=== PATIENT | male | born 1950 | race Caucasian/White ===

== ENCOUNTER 2025-04-28 14:25 | Emergency (ER) | payer MEDICARE, SELFPAY ==
[2025-04-28] VITALS (12 sets, daily range): BP systolic 134–154; BP diastolic 79–96; PULSE 79–92; RESP 16–26; TEMP 36.6; O2SAT 93–99; BMI 30.1
--- NOTE | 2025-04-28 14:32 | EKG_ITS ---
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
--- NOTE | 2025-04-28 14:32 | DI.RAD.S_ITS ---
PROCEDURE: XR CHEST 1V INDICATIONS: Chest Pain TECHNIQUE: One view of the chest was acquired. COMPARISON: None. FINDINGS: Surgical changes and devices: None. Lungs and pleura: Lungs are clear. No pleural effusions or pneumothorax. Mediastinum: Mediastinal contours appear normal. Heart size is normal. Bones and chest wall: No suspicious bony lesions. Overlying soft tissues appear unremarkable. IMPRESSION: No acute cardiopulmonary abnormality is seen. Dictated by: Otilio Mobley M.D. on 04/28/2025 at 15:43 Approved by: Otilio Mobley M.D. on 04/28/2025 at 15:43
--- NOTE | 2025-04-28 14:53 | ED_ITS ---
HPI - Chest Pain General Chief Complaint: Chest Pain Stated Complaint: Chest pain this morning Time Seen by Provider: 04/28/25 14:32 History of Present Illness HPI narrative: 75-year-old gentleman history of hypertension, former smoker quit 9 years ago, presents with midsternal chest pain radiating to bilateral arms and to the back today started at 5:00 a.m. he attributed this to a strenuous height 2 days ago which he then took a dose of Tylenol and ibuprofen which temporarily relieved the pain. However it came back again with similar symptoms chest pain radiating to back into bilateral arms and he took another dose of Tylenol and ibuprofen that temporarily relieved it and then it came back again. Related Data Allergies Allergy/AdvReac Type Severity Reaction Status Date / Time ciprofloxacin (From Cipro HC) Allergy Severe Hives Verified 04/28/25 15:03 hydrocortisone (From Cipro Allergy Severe Hives Verified 04/28/25 15:03 HC) Review of Systems Review of Systems ROS Unobtainable: All systems reviewed & are unremarkable except as noted in HPI and below Patient History Social History Smoking Status: Former smoker Exam Narrative Exam Narrative: GENERAL: [75] year old patient appears stated age. Well-developed patient, in mild distress. HEAD: Atraumatic. Normocephalic. EYES: Pupils equal round and reactive. Extraocular motions intact. No scleral icterus. No injection or drainage. ENT: Nose without bleeding, purulent drainage. Throat without erythema, tonsillar hypertrophy or exudate. Airway patent. NECK: Trachea midline. Non tender CARDIOVASCULAR: Regular rate and rhythm without murmurs, gallops, or rubs. RESPIRATORY: Clear to auscultation. Breath sounds equal bilaterally. No wheezes, rales, or rhonchi. GASTROINTESTINAL: Abdomen soft, non-tender, nondistended. EXTREMITIES: No edema or joint tenderness. BACK: Nontender without deformity or crepitance. No flank tenderness. NEURO: AOx3. SKIN: No rash or erythema of visible areas Initial Vital Signs Initial Vital Signs: Vital Signs Temperature 97.8 F 04/28/25 14:30 Pulse Rate 85 04/28/25 14:30 Respiratory Rate 17 04/28/25 14:30 Blood Pressure 134/80 04/28/25 14:30 Pulse Oximetry 99 04/28/25 14:30 Oxygen Delivery Method Room Air 04/28/25 14:30 Scores HEART Score Heart Score history: Moderately Suspicious Heart Score EKG: Significant ST depression (ST elevation V4 and V5) Heart Score Age: > or = 65 years old Heart Score risk factors: 1-2 risk factors Heart Score troponin: 1-3 times normal limit Heart Score Total: 7 Course Orders Ordered: Discontinued Medications Aspirin (Aspirin 81 Mg Chew Tab) 324 mg PO NOW ONE Stop: 04/28/25 14:33 Last Admin: 04/28/25 15:08 Dose: 324 mg Documented By: ALONA Metoprolol Tartrate (Metoprolol Tartrate 5 Mg/5 Ml Inj) 5 mg IV NOW ONE Stop: 04/28/25 15:04 Last Admin: 04/28/25 15:06 Dose: 5 mg Documented By: ALONA Nitroglycerin (Nitroglycerin 0.4 Mg Sl Tab) 0.4 mg SL [id number] PRN PRN Reason: Chest Pain Last Admin: 04/28/25 15:19 Dose: 0.4 mg Documented By: Admin: 04/28/25 15:12 Dose: 0.4 mg Documented By: Admin: 04/28/25 15:02 Dose: 0.4 mg Documented By: ALONA Vital Signs Vital signs: Vital Signs - 8 hr 04/28/25 14:30 04/28/25 15:02 04/28/25 15:12 Temperature 97.8 F Pulse Rate 85 79 86 Respiratory Rate 17 Blood Pressure 134/80 134/79 151/96 H Pulse Oximetry 99 Oxygen Delivery Method Room Air 04/28/25 15:19 Temperature Pulse Rate 80 Respiratory Rate Blood Pressure 146/88 H Pulse Oximetry Oxygen Delivery Method MDM - Chest Pain Lab Data 04/28/25 14:46 04/28/25 14:46 Labs: Lab Results 04/28/25 Range/Units 14:46 WBC 10.3 (4.5-11.0) X10^3/uL RBC 4.88 (4.5-5.9) X10^6/uL Hgb 15.6 (13.5-17.5) g/dL Hct 44.1 (41-53) % MCV 90.3 (80-100) fL MCH 32.0 (26-34) PG MCHC 35.5 (30-36) % RDW 13.8 (11.6-14.8) % Plt Count 173 (150-400) X10^3/uL Neut % (Auto) 81.4 H (50-75) % Lymph % (Auto) 14.4 L (25-40) % Mcleod % (Auto) 3.2 (3-14) % Eos % (Auto) 0.1 L (2-4) % Baso % (Auto) 0.9 (0-2) % Neut # (Auto) 8400 H (3751-9687) /uL Lymph # (Auto) 1500 (9541-6302) /uL Mcleod # (Auto) 300 (0-900) /uL Eos # (Auto) 0 (0-450) /uL Baso # (Auto) 100 (0-100) /uL PT 11.0 (9.4-12.5) SECONDS INR 1.0 (0.9-1.3) APTT 28 (25.1-36.5) SECONDS Sodium 135 L (137-145) mmol/L Potassium 4.1 (3.4-5.1) mmol/L Chloride 99 (98-107) mmol/L Carbon Dioxide 24 (22-32) mmol/L BUN 20 (9-20) mg/dL Creatinine 0.96 (0.66-1.25) mg/dL Estimated GFR > 60 (>60) mL/min BUN/Creatinine Ratio 20.8 (6-22) Glucose 152 H (70-99) mg/dL Calcium 10.2 (8.4-10.2) mg/dL Magnesium 2.1 (1.6-2.3) mg/dL Total Bilirubin 0.8 (0.2-1.3) mg/dL AST 101 H (17-59) IU/L ALT 55 H (<50) IU/L Alkaline Phosphatase 74 (38-126) U/L Total Creatine Kinase 588 H (55-170) U/L Troponin I 2.820 H* (0.01-0.034) ng/mL NT-Pro-B Natriuret Pep 478 H (<450) pg/mL Total Protein 7.8 (6.3-8.2) g/dL Albumin 4.8 (3.5-5.0) g/dL Globulin 3.0 (1.7-4.1) g/dL Albumin/Globulin Ratio 1.6 (1.0-2.8) Lipase 36 (23-300) U/L ECG Data Interpretation: NSR HR 75 ST elevation V4 and V5 VA 206 QRS 94 QT 392 MDM Narrative Medical decision making narrative: All lab work, vital signs, nurse triage note, medication list, previous ER visits, and all imaging studies reviewed. V4-5 STEMI Pt given ASA, Nitro SL x1, Lopressor 5mg IV as no IV heparin or IV nitro given with EMS already here. Dr.Bosler NAHID AJ who has graciously accepted the patient for ER transfer. Heart score 7. Differential diagnosis STEMI NSTEMI unstable angina PE dissection. Discharge Plan Departure Patient Disposition: [facility] Clinical Impression: ST elevation (STEMI) myocardial infarction Qualifiers: Involved coronary artery: LAD coronary artery Qualified Code(s): I21.02 - ST elevation (STEMI) myocardial infarction involving left anterior descending coronary artery
--- NOTE | 2025-04-28 14:56 | EKG_ITS ---
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
[2025-04-28] MEDS: NITROGLYCERIN 0.4 MG SL TAB SL ×3 (15:02→15:19)
[2025-04-28 15:06] LABS: Add Manual Diff / Slide Review NO; Hematocrit 44.1 % (41-53); Hemoglobin 15.6 g/dL (13.5-17.5); Lymphocytes Absolute Auto 1500 /uL (1100-4500); Mean Corpuscular HGB Conc 35.5 % (30-36); Mean Corpuscular Hemoglobin 32.0 PG (26-34); Mean Corpuscular Volume 90.3 fL (80-100); Platelet Count 173 X10^3/uL (150-400)
[2025-04-28] MEDS: METOPROLOL TARTRATE 5 MG/5 ML INJ IV (15:06)
[2025-04-28] MEDS: ASPIRIN 81 MG CHEW TAB 324 MG PO (15:08)
[2025-04-28 15:09] LABS: INR 1.0 (0.9-1.3); Prothrombin Time 11.0 SECONDS (9.4-12.5)
[2025-04-28 15:11] LABS: PTT Partial Thromboplastin Tim 28 SECONDS (25.1-36.5)
[2025-04-28 16:18] LABS: Alanine Aminotransferase 55 IU/L (<50); Albumin 4.8 g/dL (3.5-5.0); Albumin Globulin Ratio 1.6 (1.0-2.8); Alkaline Phosphatase 74 U/L (38-126); Blood Urea Nitrogen 20 mg/dL (9-20); Calcium 10.2 mg/dL (8.4-10.2); Carbon Dioxide 24 mmol/L (22-32); Chloride 99 mmol/L (98-107); Creatine Kinase 588 U/L (55-170); Estimated Glomerular Filt Rate > 60 mL/min (>60); Globulin 3.0 g/dL (1.7-4.1); Glucose 152 mg/dL (70-99); HEMOLYSIS < 15 (0-50); Lipase 36 U/L (23-300); Magnesium 2.1 mg/dL (1.6-2.3); Potassium 4.1 mmol/L (3.4-5.1); Sodium 135 mmol/L (137-145); Total Protein 7.8 g/dL (6.3-8.2)
[2025-04-28 16:30] LABS: NT-proBNP (BNP-Adult 18+) 478 pg/mL (<450)
[2025-04-28 16:41] LABS: Troponin I 2.820 ng/mL (0.01-0.034)
== END 2025-04-28 15:36 | disposition short-term general hospital (02) ==
PROVIDERS: Emergency Provider Family Medicine
DX: I21.02 ST elevation (STEMI) myocardial infarction involving left anterior descending coronary artery (principal); Z87.891 Personal history of nicotine dependence
CPT/HCPCS: 71045; 80053; 82550; 83690; 83735; 83880; 84484; 85025; 85610; 85730; 93005; 96374; 99284; 99285